=== PATIENT | female | born 1940 | race African-American/Black ===

== ENCOUNTER 2018-01-10 09:32 | Inpatient (IN) | payer OTHER ==
[~2018-01-10] VITALS: Ht 154.9 cm; Wt 70.3 kg
[2018-01-10] VITALS (18 sets, daily range): BP systolic 109–148; BP diastolic 47–105
[~2018-01-10 09:32] MED LIST: ASPI-1159 PO; ATOM40CA PO; BUDE6HFA INH; CLOP75TA16 PO; CLOP75TA33 PO; FLUT1DIS INH; FURO40TA5 PO; HYDR-519 PO; ISOS30TA6 PO; LEVO500T2 PO; LEVO500T89 PO; METH4TAB17 PO; NITR0.4T49 SL; PANT40TA4 PO; POTA10TA15 PO; VALS320T2 PO; [UNRECOGNIZED DRUG - CODE] PO
[2018-01-10] MEDS ORDERED: ALBUTEROL (0.083%) 2.5MG/3ML NEB HHN STA (09:40)
[2018-01-10] MEDS ORDERED: IPRATROPIUM BROMIDE (0.02%) 0.5MG/2.5ML NEB HHN STA (09:40)
[2018-01-10] MEDS ORDERED: METHYLPREDNISOLONE SOD SUCC 125 MG/2 ML VIAL IV STA (09:40)
[2018-01-10] MEDS ORDERED: MAGNESIUM 2 G PREMIX 50 ML IV STA (09:40)
[2018-01-10] MEDS ORDERED: FUROSEMIDE 40MG/4ML VIAL IVP ONE (09:45)
[2018-01-10] MEDS ORDERED: ONDANSETRON HCL 4MG/2ML VIAL ONE (10:00)
[2018-01-10] MEDS ORDERED: ONDANSETRON HCL 4MG/2ML VIAL IV ONE (10:00)
[2018-01-10 10:20] LABS: BASOPHILS % 0.6 % (0.0-2.0); EOSINOPHILS % 2.4 % (0.0-5.0); HEMOGLOBIN. 9.5 g/dL (12.0-16.0); LYMPHOCYTES % 24.6 % (20.0-50.0); MEAN CORPUSCULAR HEMOGLOBIN 24.1 pg (28.0-32.0); MEAN CORPUSCULAR VOLUME 78.9 fL (81.0-99.0); NEUTROPHILS % 66.4 % (40.0-76.0); PLATELET 405 x1000/uL (130-400); RED BLOOD CELL COUNT 3.93 mill/uL (4.2-5.4); RED CELL DISTRIBUTION WIDTH 18.8 % (11.6-14.6)
[2018-01-10 10:31] LABS: INR 1.2; PARTIAL THROMBOPLASTIN TIME 28.5 sec (23.4-31.0); PROTHROMBIN TIME 12.6 sec (9.4-11.6)
[2018-01-10 10:31] LABS: CLARITY URINE CLEAR (CLEAR); COLOR URINE YELLOW (YELLOW); KETONES URINE NEGATIVE (NEGATIVE); LEUKOCYTE ESTERASE URINE NEGATIVE (NEGATIVE); NITRITE URINE NEGATIVE (NEGATIVE); OCCULT BLOOD URINE 1+ (NEGATIVE); PROTEIN URINE 2+ (NEGATIVE); SPECIFIC GRAVITY URINE 1.017 (1.005-1.030)
[2018-01-10 10:32] LABS: CHLORIDE 100 mEq/L (98-107)
[2018-01-10] MEDS ORDERED: LEVOFLOXACIN 750MG PREMIX 150 ML IV ONE (11:00)
[2018-01-10 11:27] LABS: BG BASE EXCESS -0.6 mmol/L (-2.0-2.0); BG BILEVEL POS AIRWAY PRESSURE 15/8; BG CARBOXYHEMOGLOBIN 0.3 % (0.5-1.5); BG DEOXYHEMOGLOBIN 1.8 % (0.0-5.0); BG FRACTION INSPIRED OXYGEN 40; BG METHEMOGLOBIN 0.1 % (0.0-1.5); BG OXYGEN SATURATION 98.2 % (92.0-98.5); BG OXYHEMOGLOBIN 97.8 % (94.0-97.0); BG PCO2 44.9 mmHg (35.0-45.0); BG PH 7.363 (7.350-7.450); BG PO2 128.8 mmHg (75.0-100.0); BG SAMPLE SITE RIGHT RADIAL; BG VENT MODE MASK - BIPAP; BG VENT RATE 12 set
[2018-01-10] MEDS ORDERED: HYDROCODONE/ACETAMINOPHEN 5/325MG TABLET PO PRN ×2 (13:15→14:45)
[2018-01-10] MEDS ORDERED: IPRATROPIUM/ALBUTEROL 0.5-3(2.5)MG/3ML NEB HHN PRN (13:15)
[2018-01-10] MEDS ORDERED: ACETAMINOPHEN 325MG TABLET PO PRN ×2 (13:15→14:45)
[2018-01-10] MEDS ORDERED: CLONIDINE 0.2MG TABLET PO PRN ×2 (14:15)
[2018-01-10] MEDS: LOSARTAN POTASSIUM 25 MG TABLET PO SCH ×2 (14:15→21:32)
[2018-01-10] MEDS ORDERED: CLONIDINE 0.1MG TABLET PO PRN ×2 (14:30→14:45)
[2018-01-10] MEDS ORDERED: DEXTROSE 50% WATER 50ML SYRINGE IV PRN (14:45)
[2018-01-10] MEDS ORDERED: DIPHENHYDRAMINE 50MG/ML VIAL IV PRN (14:45)
[2018-01-10] MEDS ORDERED: IPRATROPIUM/ALBUTEROL 0.5-3(2.5)MG/3ML NEB INH PRN (14:45)
[2018-01-10] MEDS ORDERED: IPRATROPIUM/ALBUTEROL 0.5-3(2.5)MG/3ML NEB HHN SCH (15:00)
[2018-01-10] MEDS: TRAMADOL 50MG TABLET PO PRN (16:08)
[2018-01-10] MEDS: PIPERACILLIN/TAZ 3.375G PREMIX 50 ML IV SCH (16:08)
[2018-01-10] MEDS: IPRATROPIUM/ALBUTEROL 0.5-3(2.5)MG/3ML NEB INH SCH ×2 (16:19→20:05)
[2018-01-10] MEDS: BUDESONIDE 0.5MG/2ML NEB HHN SCH ×2 (16:19→20:05)
[2018-01-10] MEDS: FUROSEMIDE 40MG/4ML VIAL IVP SCH (17:46)
[2018-01-10] MEDS: BLOOD SUGAR DIAGNOSTIC STRIP TEST SCH ×2 (18:35→21:25)
[2018-01-10] MEDS: INSULIN LISPRO 100 UNITS/ML SUBCUT SCH ×2 (18:40→21:31)
[2018-01-10] MEDS: HYDROCODONE/ACETAMINOPHEN 5/325MG TABLET PO PRN (20:19)
[2018-01-11] VITALS (27 sets, daily range): BP systolic 111–150; BP diastolic 52–107
[2018-01-11] MEDS: IPRATROPIUM/ALBUTEROL 0.5-3(2.5)MG/3ML NEB INH SCH ×6 (00:21→20:16)
[2018-01-11] MEDS: PIPERACILLIN/TAZ 3.375G PREMIX 50 ML IV SCH ×4 (01:26→23:24)
[2018-01-11] MEDS: HYDROCODONE/ACETAMINOPHEN 5/325MG TABLET PO PRN (02:38)
[2018-01-11 04:49] LABS: HEMATOCRIT. 26.3 % (36.0-48.0); HEMOGLOBIN. 8.6 g/dL (12.0-16.0); MEAN CORPUSCULAR HEMOGLOBIN 25.2 pg (28.0-32.0); MEAN CORPUSCULAR VOLUME 77.2 fL (81.0-99.0); PLATELET 228 x1000/uL (130-400); RED BLOOD CELL COUNT 3.41 mill/uL (4.2-5.4); RED CELL DISTRIBUTION WIDTH 18.5 % (11.6-14.6)
[2018-01-11 05:02] LABS: CHLORIDE 97 mEq/L (98-107)
[2018-01-11 05:19] LABS: CREATINE KINASE 143 IU/L (26-192); HDL CHOLESTEROL 68 mg/dL (40-59); LDL CHOLESTEROL 63 mg/dL (5-100)
[2018-01-11] MEDS: BLOOD SUGAR DIAGNOSTIC STRIP TEST SCH ×4 (07:26→21:00)
[2018-01-11] MEDS: INSULIN LISPRO 100 UNITS/ML SUBCUT SCH ×4 (07:28→20:57)
[2018-01-11] MEDS: BUDESONIDE 0.5MG/2ML NEB HHN SCH ×2 (07:40→20:16)
[2018-01-11] MEDS: FUROSEMIDE 40MG/4ML VIAL IVP SCH ×2 (08:14→17:53)
[2018-01-11] MEDS: PANTOPRAZOLE SODIUM 40 MG/VIAL IV SCH (08:14)
[2018-01-11] MEDS: LOSARTAN POTASSIUM 25 MG TABLET PO SCH ×2 (08:14→20:45)
[2018-01-11] MEDS: TRAMADOL 50MG TABLET PO PRN (10:21)
[2018-01-11 12:24] LABS: PLATELET ESTIMATE NORMAL
[2018-01-11] MEDS: MORPHINE SULFATE 4 MG/ML CPJ (NOT FOR IM USE) IV PRN ×2 (12:48→23:24)
[2018-01-11] MEDS ORDERED: INSULIN GLARGINE UD 100 UNITS/ML SYR SUBCUT SCH (13:00)
[2018-01-11] MEDS ORDERED: MAGNESIUM/ALUMINUM HYDROXIDE/SIMETHICONE 30ML UDC PO PRN (16:30)
[2018-01-11] MEDS: PROMETHAZINE/DEXTROMETHORPHAN 6.25-15MG/5ML BOTTLE 120ML PO PRN (20:44)
[2018-01-12] VITALS (11 sets, daily range): BP systolic 109–150; BP diastolic 52–87
[2018-01-12] MEDS: IPRATROPIUM/ALBUTEROL 0.5-3(2.5)MG/3ML NEB INH SCH ×6 (00:13→20:19)
[2018-01-12] MEDS: MORPHINE SULFATE 4 MG/ML CPJ (NOT FOR IM USE) IV PRN ×3 (05:31→22:20)
[2018-01-12 07:34] LABS: HEMATOCRIT. 24.3 % (36.0-48.0); HEMOGLOBIN. 7.8 g/dL (12.0-16.0); MEAN CORPUSCULAR HEMOGLOBIN 24.5 pg (28.0-32.0); MEAN CORPUSCULAR VOLUME 76.3 fL (81.0-99.0); MEAN PLATELET VOLUME 7.9 fl (7.4-10.4); PLATELET 238 x1000/uL (130-400); RED BLOOD CELL COUNT 3.19 mill/uL (4.2-5.4); RED CELL DISTRIBUTION WIDTH 18.7 % (11.6-14.6)
[2018-01-12] MEDS: INSULIN LISPRO 100 UNITS/ML SUBCUT SCH ×4 (08:00→20:52)
[2018-01-12 08:03] LABS: CHLORIDE 99 mEq/L (98-107)
[2018-01-12] MEDS: BLOOD SUGAR DIAGNOSTIC STRIP TEST SCH ×4 (08:34→20:51)
[2018-01-12] MEDS: FUROSEMIDE 40MG/4ML VIAL IVP SCH ×2 (08:35→16:19)
[2018-01-12] MEDS: LOSARTAN POTASSIUM 25 MG TABLET PO SCH ×2 (08:35→20:50)
[2018-01-12] MEDS: PIPERACILLIN/TAZ 3.375G PREMIX 50 ML IV SCH ×3 (08:35→23:40)
[2018-01-12] MEDS: PANTOPRAZOLE SODIUM 40 MG/VIAL IV SCH (08:35)
[2018-01-12] MEDS: BUDESONIDE 0.5MG/2ML NEB HHN SCH ×2 (09:07→20:19)
[2018-01-12] MEDS ORDERED: INSULIN GLARGINE UD 100 UNITS/ML SYR SUBCUT SCH (10:00)
[2018-01-12] MEDS: ONDANSETRON HCL 4MG/2ML VIAL IV PRN (11:21)
[2018-01-12] MEDS: INSULIN GLARGINE UD 100 UNITS/ML SYR SUBCUT SCH (11:25)
[2018-01-12] MEDS: DOCUSATE SODIUM 250MG CAPSULE PO SCH (11:30)
[2018-01-12] MEDS ORDERED: CLOPIDOGREL 75MG TABLET PO SCH (12:00)
[2018-01-12 13:30] LABS: PLATELET ESTIMATE NORMAL
[2018-01-12] MEDS: ASPIRIN 81MG TABLET PO SCH (13:33)
[2018-01-12] MEDS: PROMETHAZINE/DEXTROMETHORPHAN 6.25-15MG/5ML BOTTLE 120ML PO PRN ×2 (13:35→20:58)
[2018-01-12 15:57] LABS: HEMATOCRIT 25.9 % (36.0-48.0); HEMOGLOBIN 8.3 g/dL (12.0-16.0)
[2018-01-12] MEDS: CARVEDILOL 3.125 MG TABLET PO SCH (20:51)
[2018-01-13] VITALS (15 sets, daily range): BP systolic 92–117; BP diastolic 42–56
[2018-01-13] MEDS: IPRATROPIUM/ALBUTEROL 0.5-3(2.5)MG/3ML NEB INH SCH ×6 (00:04→20:57)
[2018-01-13] MEDS: PROMETHAZINE/DEXTROMETHORPHAN 6.25-15MG/5ML BOTTLE 120ML PO PRN ×2 (03:18→20:21)
[2018-01-13] MEDS: HYDROCODONE/ACETAMINOPHEN 5/325MG TABLET PO PRN ×2 (03:20→12:52)
[2018-01-13] MEDS: MORPHINE SULFATE 4 MG/ML CPJ (NOT FOR IM USE) IV PRN ×2 (05:36→12:58)
[2018-01-13 06:21] LABS: BASOPHILS % 0.2 % (0.0-2.0); EOSINOPHILS % 3.1 % (0.0-5.0); HEMATOCRIT. 25.1 % (36.0-48.0); HEMOGLOBIN. 8.1 g/dL (12.0-16.0); LYMPHOCYTES % 11.9 % (20.0-50.0); MEAN CORPUSCULAR HEMOGLOBIN 24.8 pg (28.0-32.0); MEAN CORPUSCULAR VOLUME 77.3 fL (81.0-99.0); MEAN PLATELET VOLUME 7.9 fl (7.4-10.4); MONOCYTES % 9.1 % (2.0-8.0); NEUTROPHILS % 75.7 % (40.0-76.0); PLATELET 238 x1000/uL (130-400); RED BLOOD CELL COUNT 3.25 mill/uL (4.2-5.4); RED CELL DISTRIBUTION WIDTH 19.4 % (11.6-14.6)
[2018-01-13] MEDS: INSULIN LISPRO 100 UNITS/ML SUBCUT SCH ×4 (08:00→20:20)
[2018-01-13] MEDS: BLOOD SUGAR DIAGNOSTIC STRIP TEST SCH ×4 (08:14→20:20)
[2018-01-13] MEDS: BUDESONIDE 0.5MG/2ML NEB HHN SCH (08:43)
[2018-01-13] MEDS: PIPERACILLIN/TAZ 3.375G PREMIX 50 ML IV SCH ×3 (08:52→23:13)
[2018-01-13] MEDS: PANTOPRAZOLE SODIUM 40 MG/VIAL IV SCH (08:52)
[2018-01-13] MEDS: DOCUSATE SODIUM 250MG CAPSULE PO SCH (08:53)
[2018-01-13] MEDS: LOSARTAN POTASSIUM 25 MG TABLET PO SCH ×2 (08:53→20:20)
[2018-01-13] MEDS: ASPIRIN 81MG TABLET PO SCH (08:53)
[2018-01-13] MEDS: FUROSEMIDE 40MG/4ML VIAL IVP SCH ×2 (08:53→16:57)
[2018-01-13] MEDS: CARVEDILOL 3.125 MG TABLET PO SCH ×2 (08:55→20:19)
[2018-01-13] MEDS: INSULIN GLARGINE UD 100 UNITS/ML SYR SUBCUT SCH (12:53)
[2018-01-14] VITALS (15 sets, daily range): BP systolic 98–151; BP diastolic 44–67
[2018-01-14] MEDS: IPRATROPIUM/ALBUTEROL 0.5-3(2.5)MG/3ML NEB INH SCH ×5 (00:25→16:17)
[2018-01-14] MEDS: MORPHINE SULFATE 4 MG/ML CPJ (NOT FOR IM USE) IV PRN ×6 (00:33→21:15)
[2018-01-14] MEDS: PROMETHAZINE/DEXTROMETHORPHAN 6.25-15MG/5ML BOTTLE 120ML PO PRN (06:19)
[2018-01-14 07:06] LABS: BASOPHILS % 0.5 % (0.0-2.0); HEMATOCRIT. 25.5 % (36.0-48.0); HEMOGLOBIN. 8.4 g/dL (12.0-16.0); LYMPHOCYTES % 20.5 % (20.0-50.0); MEAN CORPUSCULAR HEMOGLOBIN 25.4 pg (28.0-32.0); MEAN CORPUSCULAR VOLUME 77.1 fL (81.0-99.0); MEAN PLATELET VOLUME 7.8 fl (7.4-10.4); PLATELET 245 x1000/uL (130-400); RED BLOOD CELL COUNT 3.31 mill/uL (4.2-5.4); RED CELL DISTRIBUTION WIDTH 19.6 % (11.6-14.6)
[2018-01-14] MEDS: INSULIN LISPRO 100 UNITS/ML SUBCUT SCH ×4 (08:00→21:00)
[2018-01-14] MEDS: PIPERACILLIN/TAZ 3.375G PREMIX 50 ML IV SCH ×2 (08:29→16:49)
[2018-01-14] MEDS: LOSARTAN POTASSIUM 25 MG TABLET PO SCH ×2 (08:29→21:13)
[2018-01-14] MEDS: FUROSEMIDE 40MG/4ML VIAL IVP SCH ×2 (08:29→16:49)
[2018-01-14] MEDS: ASPIRIN 81MG TABLET PO SCH (08:29)
[2018-01-14] MEDS: PANTOPRAZOLE SODIUM 40 MG/VIAL IV SCH (08:29)
[2018-01-14] MEDS: DOCUSATE SODIUM 250MG CAPSULE PO SCH (08:29)
[2018-01-14] MEDS: BLOOD SUGAR DIAGNOSTIC STRIP TEST SCH ×4 (08:29→21:15)
[2018-01-14] MEDS: CARVEDILOL 3.125 MG TABLET PO SCH ×2 (08:30→21:14)
[2018-01-14] MEDS ORDERED: BISACODYL 10MG SUPP PR PRN (10:15)
[2018-01-14] MEDS: INSULIN GLARGINE UD 100 UNITS/ML SYR SUBCUT SCH (10:27)
[2018-01-14] MEDS ORDERED: LACTULOSE 20G/30ML UDC PO SCH (12:15)
[2018-01-14] MEDS ORDERED: NA PHOS,M-B/NA PHOS,DI-BA ENEMA 118ML PR PRN (16:45)
[2018-01-15] VITALS (17 sets, daily range): BP systolic 89–148; BP diastolic 27–74
[2018-01-15] MEDS: PIPERACILLIN/TAZ 3.375G PREMIX 50 ML IV SCH ×4 (00:45→23:45)
[2018-01-15 06:40] LABS: CHLORIDE 98 mEq/L (98-107)
[2018-01-15 06:55] LABS: CREATINE KINASE 48 IU/L (26-192)
[2018-01-15] MEDS: INSULIN LISPRO 100 UNITS/ML SUBCUT SCH ×4 (08:00→21:00)
[2018-01-15] MEDS: BLOOD SUGAR DIAGNOSTIC STRIP TEST SCH ×4 (08:22→21:23)
[2018-01-15 08:49] LABS: CREATINE KINASE MB FRACTION 0.5 ng/mL (0.5-3.6)
[2018-01-15] MEDS: IPRATROPIUM/ALBUTEROL 0.5-3(2.5)MG/3ML NEB INH SCH ×4 (08:51→20:47)
[2018-01-15] MEDS: DOCUSATE SODIUM 250MG CAPSULE PO SCH (09:03)
[2018-01-15] MEDS: PANTOPRAZOLE SODIUM 40 MG/VIAL IV SCH (09:03)
[2018-01-15] MEDS: LOSARTAN POTASSIUM 25 MG TABLET PO SCH ×2 (09:03→21:00)
[2018-01-15] MEDS: FUROSEMIDE 40MG/4ML VIAL IVP SCH ×2 (09:03→18:27)
[2018-01-15] MEDS: ASPIRIN 81MG TABLET PO SCH (09:03)
[2018-01-15] MEDS: CARVEDILOL 3.125 MG TABLET PO SCH ×2 (09:04→21:22)
[2018-01-15] MEDS: MORPHINE SULFATE 4 MG/ML CPJ (NOT FOR IM USE) IV PRN ×2 (09:04→18:16)
[2018-01-15] MEDS ORDERED: LACTULOSE 20G/30ML UDC PO NR (11:30)
[2018-01-15] MEDS: POTASSIUM CHLORIDE 20MEQ/PACKET PO SCH (11:41)
[2018-01-15] MEDS: INSULIN GLARGINE UD 100 UNITS/ML SYR SUBCUT SCH (11:41)
[2018-01-15] MEDS ORDERED: MAGNESIUM CITRATE 300ML SOLUTION PO SCH (14:00)
[2018-01-15] MEDS ORDERED: SORBITOL 70% SOLN 30ML PO SCH ×2 (15:00→20:00)
[2018-01-15] MEDS: ONDANSETRON HCL 4MG/2ML VIAL IV PRN (23:45)
[2018-01-16] VITALS (14 sets, daily range): BP systolic 88–145; BP diastolic 37–78
[2018-01-16] MEDS: IPRATROPIUM/ALBUTEROL 0.5-3(2.5)MG/3ML NEB INH SCH ×6 (00:37→20:31)
[2018-01-16] MEDS: MORPHINE SULFATE 4 MG/ML CPJ (NOT FOR IM USE) IV PRN ×2 (01:02→08:35)
[2018-01-16] MEDS: PROMETHAZINE/DEXTROMETHORPHAN 6.25-15MG/5ML BOTTLE 120ML PO PRN (01:27)
[2018-01-16 07:03] LABS: BASOPHILS % 0.5 % (0.0-2.0); EOSINOPHILS % 5.8 % (0.0-5.0); HEMATOCRIT. 26.1 % (36.0-48.0); HEMOGLOBIN. 8.6 g/dL (12.0-16.0); LYMPHOCYTES % 17.8 % (20.0-50.0); MEAN CORPUSCULAR HEMOGLOBIN 25.4 pg (28.0-32.0); MEAN CORPUSCULAR VOLUME 77.1 fL (81.0-99.0); MONOCYTES % 8.9 % (2.0-8.0); PLATELET 214 x1000/uL (130-400); RED BLOOD CELL COUNT 3.38 mill/uL (4.2-5.4); RED CELL DISTRIBUTION WIDTH 19.4 % (11.6-14.6)
[2018-01-16] MEDS: BLOOD SUGAR DIAGNOSTIC STRIP TEST SCH ×4 (07:55→21:09)
[2018-01-16] MEDS: INSULIN LISPRO 100 UNITS/ML SUBCUT SCH ×4 (08:00→21:00)
[2018-01-16 08:19] LABS: PHOSPHORUS 2.7 mg/dL (2.5-4.9)
[2018-01-16] MEDS: DOCUSATE SODIUM 250MG CAPSULE PO SCH (08:23)
[2018-01-16] MEDS: PIPERACILLIN/TAZ 3.375G PREMIX 50 ML IV SCH ×3 (08:32→23:40)
[2018-01-16] MEDS: ASPIRIN 81MG TABLET PO SCH (08:32)
[2018-01-16] MEDS: POTASSIUM CHLORIDE 20MEQ/PACKET PO SCH (08:32)
[2018-01-16] MEDS: PANTOPRAZOLE SODIUM 40 MG/VIAL IV SCH (08:32)
[2018-01-16] MEDS: FUROSEMIDE 40MG/4ML VIAL IVP SCH ×2 (08:32→18:09)
[2018-01-16] MEDS: LOSARTAN POTASSIUM 25 MG TABLET PO SCH ×2 (08:32→21:00)
[2018-01-16] MEDS: CARVEDILOL 3.125 MG TABLET PO SCH ×2 (08:35→21:00)
[2018-01-16] MEDS: INSULIN GLARGINE UD 100 UNITS/ML SYR SUBCUT SCH (10:17)
[2018-01-16] MEDS ORDERED: HYDROCODONE/ACETAMINOPHEN 10/325MG TABLET PO PRN (19:45)
[2018-01-16] MEDS ORDERED: SENNOSIDES/DOCUSATE SOD 8.6/50MG TABLET PO PRN (19:45)
[2018-01-16] MEDS ORDERED: SORBITOL 70% SOLN 30ML PO NR (20:00)
[2018-01-17] VITALS (12 sets, daily range): BP systolic 90–129; BP diastolic 35–56
[2018-01-17] MEDS: IPRATROPIUM/ALBUTEROL 0.5-3(2.5)MG/3ML NEB INH SCH ×5 (01:11→20:30)
[2018-01-17] MEDS: PROMETHAZINE/DEXTROMETHORPHAN 6.25-15MG/5ML BOTTLE 120ML PO PRN ×3 (03:12→20:23)
[2018-01-17] MEDS: HYDROCODONE/ACETAMINOPHEN 5/325MG TABLET PO PRN ×3 (03:12→20:24)
[2018-01-17 06:39] LABS: BASOPHILS % 0.9 % (0.0-2.0); CHLORIDE 97 mEq/L (98-107); EOSINOPHILS % 6.9 % (0.0-5.0); HEMATOCRIT. 25.9 % (36.0-48.0); HEMOGLOBIN. 8.3 g/dL (12.0-16.0); LYMPHOCYTES % 15.7 % (20.0-50.0); MEAN CORPUSCULAR HEMOGLOBIN 24.2 pg (28.0-32.0); MEAN CORPUSCULAR VOLUME 75.9 fL (81.0-99.0); MEAN PLATELET VOLUME 7.7 fl (7.4-10.4); MONOCYTES % 7.8 % (2.0-8.0); NEUTROPHILS % 68.7 % (40.0-76.0); PLATELET 213 x1000/uL (130-400); RED BLOOD CELL COUNT 3.41 mill/uL (4.2-5.4); RED CELL DISTRIBUTION WIDTH 19.8 % (11.6-14.6)
[2018-01-17] MEDS: BLOOD SUGAR DIAGNOSTIC STRIP TEST SCH ×4 (07:25→20:13)
[2018-01-17] MEDS: INSULIN LISPRO 100 UNITS/ML SUBCUT SCH ×4 (07:39→20:23)
[2018-01-17] MEDS: PANTOPRAZOLE SODIUM 40 MG/VIAL IV SCH (08:13)
[2018-01-17] MEDS: POTASSIUM CHLORIDE 20MEQ/PACKET PO SCH (08:13)
[2018-01-17] MEDS: LOSARTAN POTASSIUM 25 MG TABLET PO SCH ×2 (08:13→20:07)
[2018-01-17] MEDS: ASPIRIN 81MG TABLET PO SCH (08:13)
[2018-01-17] MEDS: FUROSEMIDE 40MG/4ML VIAL IVP SCH ×2 (08:13→17:18)
[2018-01-17] MEDS: PIPERACILLIN/TAZ 3.375G PREMIX 50 ML IV SCH ×2 (08:13→17:18)
[2018-01-17] MEDS: CARVEDILOL 3.125 MG TABLET PO SCH (08:14)
[2018-01-17] MEDS: DOCUSATE SODIUM 250MG CAPSULE PO SCH (08:14)
[2018-01-17] MEDS: INSULIN GLARGINE UD 100 UNITS/ML SYR SUBCUT SCH (08:24)
[2018-01-17] MEDS ORDERED: POTASSIUM CHLORIDE 20MEQ/PACKET PO NR (08:25)
[2018-01-17] MEDS: AMLODIPINE 2.5MG TABLET PO SCH ×2 (11:00→20:07)
[2018-01-17] MEDS ORDERED: ATORVASTATIN CALCIUM 20MG TABLET PO SCH (21:00)
[2018-01-18] VITALS (14 sets, daily range): BP systolic 93–139; BP diastolic 16–76
[2018-01-18] MEDS: IPRATROPIUM/ALBUTEROL 0.5-3(2.5)MG/3ML NEB INH SCH ×5 (00:27→16:00)
[2018-01-18] MEDS: PROMETHAZINE/DEXTROMETHORPHAN 6.25-15MG/5ML BOTTLE 120ML PO PRN (04:59)
[2018-01-18] MEDS: HYDROCODONE/ACETAMINOPHEN 5/325MG TABLET PO PRN ×2 (04:59→12:08)
[2018-01-18 06:28] LABS: BASOPHILS % 0.6 % (0.0-2.0); EOSINOPHILS % 9.6 % (0.0-5.0); HEMATOCRIT. 26.1 % (36.0-48.0); HEMOGLOBIN. 8.6 g/dL (12.0-16.0); LYMPHOCYTES % 19.2 % (20.0-50.0); MEAN CORPUSCULAR VOLUME 75.8 fL (81.0-99.0); MEAN PLATELET VOLUME 7.9 fl (7.4-10.4); MONOCYTES % 8.3 % (2.0-8.0); NEUTROPHILS % 62.3 % (40.0-76.0); PLATELET 214 x1000/uL (130-400); RED BLOOD CELL COUNT 3.45 mill/uL (4.2-5.4); RED CELL DISTRIBUTION WIDTH 19.2 % (11.6-14.6)
[2018-01-18 06:54] LABS: CHLORIDE 99 mEq/L (98-107)
[2018-01-18] MEDS: BLOOD SUGAR DIAGNOSTIC STRIP TEST SCH ×2 (07:30→12:37)
[2018-01-18] MEDS: INSULIN LISPRO 100 UNITS/ML SUBCUT SCH ×2 (08:00→12:37)
[2018-01-18] MEDS: FUROSEMIDE 40MG/4ML VIAL IVP SCH (09:00)
[2018-01-18] MEDS: AMLODIPINE 2.5MG TABLET PO SCH (09:00)
[2018-01-18] MEDS: INSULIN GLARGINE UD 100 UNITS/ML SYR SUBCUT SCH (09:25)
[2018-01-18] MEDS: DOCUSATE SODIUM 250MG CAPSULE PO SCH (09:27)
[2018-01-18] MEDS: LOSARTAN POTASSIUM 25 MG TABLET PO SCH (09:27)
[2018-01-18] MEDS: POTASSIUM CHLORIDE 20MEQ/PACKET PO SCH (09:27)
[2018-01-18] MEDS: ASPIRIN 81MG TABLET PO SCH (09:27)
[2018-01-18] MEDS: PANTOPRAZOLE SODIUM 40 MG/VIAL IV SCH (10:02)
[2018-01-18] MEDS ORDERED: BISACODYL 10MG SUPP PR NR (10:15)
[2018-01-18] MEDS ORDERED: BISACODYL 5MG TABLET PO NR (10:15)
[2018-01-18 14:18] LABS: TOTAL IRON BINDING CAPACITY 237 ug/dL (250-450)
[2018-01-18] MEDS ORDERED: LOSA25TA3 PO (14:25)
[2018-01-18] MEDS ORDERED: DOCUSATE SODIUM 250MG CAPSULE PO SCH (17:00)
== END 2018-01-18 16:45 | disposition home or self-care (01) | DRG 280 ==
LOC: ER 09:50 → EDBEDREQ 09:54 → CVICU 11:13 → EDBEDREQTM 11:15 → EDBEDREQ 11:15 → ENRESERV 11:45 → 5EST 01-11 18:52
PROVIDERS: ADMIT Internal Medicine; ATTEND Internal Medicine
PROC: 5A09357 Assistance with Respiratory Ventilation, Less than 24 Consecutive Hours, Continuous Positive Airway Pressure (ICD-10-PCS; principal; 2018-01-10)
PROC: 5A09357 Assistance with Respiratory Ventilation, Less than 24 Consecutive Hours, Continuous Positive Airway Pressure (ICD-10-PCS; 2018-01-11)
DX: I13.0 Hypertensive heart and chronic kidney disease with heart failure and stage 1 through stage 4 chronic kidney disease, or unspecified chronic kidney disease (principal); I50.43 Acute on chronic combined systolic (congestive) and diastolic (congestive) heart failure; I21.4 Non-ST elevation (NSTEMI) myocardial infarction; J96.01 Acute respiratory failure with hypoxia; K86.1 Other chronic pancreatitis; E11.22 Type 2 diabetes mellitus with diabetic chronic kidney disease; E11.65 Type 2 diabetes mellitus with hyperglycemia; E87.2 Acidosis; J44.0 Chronic obstructive pulmonary disease with (acute) lower respiratory infection; J44.1 Chronic obstructive pulmonary disease with (acute) exacerbation; I42.0 Dilated cardiomyopathy; N18.9 Chronic kidney disease, unspecified; B19.20 Unspecified viral hepatitis C without hepatic coma; K74.60 Unspecified cirrhosis of liver; D50.9 Iron deficiency anemia, unspecified; E78.5 Hyperlipidemia, unspecified; I25.10 Atherosclerotic heart disease of native coronary artery without angina pectoris; I25.82 Chronic total occlusion of coronary artery; I27.29 Other secondary pulmonary hypertension; I34.0 Nonrheumatic mitral (valve) insufficiency; I35.0 Nonrheumatic aortic (valve) stenosis; K21.9 Gastro-esophageal reflux disease without esophagitis; D72.829 Elevated white blood cell count, unspecified; K25.9 Gastric ulcer, unspecified as acute or chronic, without hemorrhage or perforation; K43.9 Ventral hernia without obstruction or gangrene; D47.3 Essential (hemorrhagic) thrombocythemia; K57.90 Diverticulosis of intestine, part unspecified, without perforation or abscess without bleeding; K59.00 Constipation, unspecified; N28.1 Cyst of kidney, acquired; Z79.02 Long term (current) use of antithrombotics/antiplatelets; Z79.4 Long term (current) use of insulin; I25.2 Old myocardial infarction; Z79.51 Long term (current) use of inhaled steroids; Z79.82 Long term (current) use of aspirin; Z87.11 Personal history of peptic ulcer disease; Z87.891 Personal history of nicotine dependence; Z90.49 Acquired absence of other specified parts of digestive tract; Z90.710 Acquired absence of both cervix and uterus; Z99.81 Dependence on supplemental oxygen; Z88.6 Allergy status to analgesic agent; K64.8 Other hemorrhoids
CPT/HCPCS: 36415; 36600; 71045; 74176; 80048; 80053; 80061; 81003; 82248; 82270; 82375; 82550; 82553; 82728; 82805; 82962; 83036; 83540; 83550; 83605; 83690; 83735; 83880; 84100; 84443; 84484; 85014; 85018; 85025; 85379; 85610; 85730; 86850; 86900; 86920; 87040; 87086; 93005; 93306; 94640; 94644; 94660; 96365; 96375; 97116; 97162; 99291; A6261; C9113; J1815; J1940; J1956; J2270; J2405; J2543; J2930; J3475; J7040; J7050; J7611; J7620; J7626; A4315